=== PATIENT | female | born 1995 | race Caucasian/White ===

== ENCOUNTER 2018-06-15 08:18 | Emergency (ER) | payer MEDICAID ==
[~2018-06-15] VITALS: Ht 165.1 cm; Wt 91.0 kg
--- NOTE | 2018-06-15 09:11 | NUR ---
PT STATES SHE HIT HER HEAD WHILE DRIVING OVER A SPEED BUMP YESTERDAY. DENIES LOC, OR BLOOD THINNERS. NO FOCAL DEFICITS. COMPLAINING OF FATIGUE, DIZZINESS, TINGLING TO ALL EXTREMITIES.
[2018-06-15] MEDS ORDERED: ONDANSETRON ODT 4 MG PO ONE (10:00)
[2018-06-15 10:06] LABS: BASOPHILS # (AUTO) 0.06 x10^3/uL (0-0.1); BASOPHILS % (AUTO) 1 % (0-1); EOSINOPHILS # (AUTO) 0.01 x10^3/uL (0-0.4); EOSINOPHILS % (AUTO) 0 % (1-7); LYMPHOCYTES # (AUTO) 2.21 x10^3/uL (1-3.4); LYMPHOCYTES % (AUTO) 23 % (22-44); MD NO; MEAN CORPUSCULAR HEMOGLOBIN 29.7 pg (27.0-34.8); MEAN CORPUSCULAR HGB CONC 34.1 g/dL (32.4-35.8); MEAN CORPUSCULAR VOLUME 87.1 fL (80-100); MEAN PLATELET VOLUME 9.3 fL (7.4-10.4); MONOCYTES % (AUTO) 4 % (2-9); NEUTROPHILS # (AUTO) 6.85 x10^3/uL (1.8-6.8); NEUTROPHILS % (AUTO) 72 % (42-75); PLATELET COUNT 262 x10^3/uL (130-400); RED BLOOD COUNT 5.42 x10^6/uL (3.82-5.3); RED CELL DISTRIBUTION WIDTH 13.2 % (9.6-15.2)
[2018-06-15] MEDS ORDERED: ONDANSETRON ODT 4 MG ONE (10:14)
[2018-06-15 10:20] LABS: ANION GAP 4 mmol/L (5-15); CALCIUM 9.2 mg/dL (8.5-10.1); CHLORIDE 108 mmol/L (98-107)
[2018-06-15 10:21] LABS: CREATININE 0.87 mg/dL (0.55-1.02)
[2018-06-15 10:37] VITALS: BP 110/53
--- NOTE | 2018-06-15 11:14 | NUR ---
Patient contimnues to complain of dizziness/extremity tingling. No change in unremarkable strtength/sensation exams. Reports nausea medicine helpeful. Taking po fluids/solids
== END 2018-06-15 11:26 | disposition home or self-care (01) ==
LOC: ED 09:01
DX: S06.0X0A Concussion without loss of consciousness, initial encounter (principal); X58.XXXA Exposure to other specified factors, initial encounter; Y93.89 Activity, other specified; Y92.89 Other specified places as the place of occurrence of the external cause; Y99.8 Other external cause status
CPT/HCPCS: 36415; 70450; 80048; 82040; 85025; 99284; Q0162

== ENCOUNTER 2018-07-02 19:48 | Emergency (ER) | payer MEDICAID ==
[~2018-07-02] VITALS: Ht 165.1 cm; Wt 90.4 kg
[2018-07-02 20:05] VITALS: BP 118/85
[2018-07-02] MEDS ORDERED: DEXAMETHASONE 4 MG TABLET ONE (20:35)
[2018-07-02] MEDS ORDERED: DEXAMETHASONE 4 MG TABLET PO ONE (21:00)
== END 2018-07-02 21:30 | disposition home or self-care (01) ==
LOC: ED 20:20
DX: J02.8 Acute pharyngitis due to other specified organisms (principal); B97.89 Other viral agents as the cause of diseases classified elsewhere
CPT/HCPCS: 87081; 87880; 99283

== ENCOUNTER 2018-08-21 19:37 | Emergency (ER) | payer MEDICAID, OTHER ==
[~2018-08-21] VITALS: Ht 165.1 cm; Wt 87.0 kg
[2018-08-21 19:42] VITALS: BP 124/50
[2018-08-21] MEDS ORDERED: IBUPROFEN 200 MG TABLET ONE (20:06)
[2018-08-21] MEDS ORDERED: IBUPROFEN 200 MG TABLET PO ONE (20:30)
--- NOTE | 2018-08-21 20:42 | NUR ---
Patient/Caregiver given discharge instructions and they have confirmed that they understand the instructions. LEIGHTON bandage on left ankle, CMS intact. Patient ambulatory with steady gait with crutches brought from home.
== END 2018-08-21 20:47 | disposition home or self-care (01) ==
LOC: ED 20:22
DX: S96.912A Strain of unspecified muscle and tendon at ankle and foot level, left foot, initial encounter (principal); X58.XXXA Exposure to other specified factors, initial encounter; Y93.89 Activity, other specified; Y92.89 Other specified places as the place of occurrence of the external cause; Y99.8 Other external cause status
CPT/HCPCS: 99283

== ENCOUNTER 2018-08-27 08:56 | Emergency (ER) | payer OTHER, MEDICAID ==
[~2018-08-27] VITALS: Ht 165.1 cm; Wt 87.1 kg
== END 2018-08-27 10:02 | disposition home or self-care (01) ==
LOC: ED 09:56
DX: M77.52 Other enthesopathy of left foot and ankle (principal)
CPT/HCPCS: 99281

== ENCOUNTER 2018-10-08 15:50 | Emergency (ER) | payer OTHER, MEDICAID ==
[~2018-10-08] VITALS: Ht 165.1 cm; Wt 82.3 kg
[2018-10-08 15:52] VITALS: BP 100/63
--- NOTE | 2018-10-08 16:08 | NUR ---
Pt assessed. C/o dysuria for past week, worsening yesteday. Denies fever, denies flank pain. Urine sample sent to lab. Pt denies significant medical hx. NAD at this time. Will cont to monitor, call light within reach
[2018-10-08 16:14] LABS: HCG UR SG 1.026 (1.003-1.030); MICROSCOPIC NOT IND
[2018-10-08 16:17] LABS: CULTURE INDICATED? NO
== END 2018-10-08 16:52 | disposition home or self-care (01) ==
LOC: ED 16:24
DX: R30.0 Dysuria (principal)
CPT/HCPCS: 81003; 81025; 99283

== ENCOUNTER 2019-08-10 22:09 | Emergency (ER) | payer MEDICAID ==
[~2019-08-10] VITALS: Ht 165.1 cm; Wt 79.0 kg
[2019-08-10 22:46] LABS: BASOPHILS # (AUTO) 0.12 x10^3/uL (0-0.1); BASOPHILS % (AUTO) 1 % (0-1); EOSINOPHILS # (AUTO) 0.09 x10^3/uL (0-0.4); EOSINOPHILS % (AUTO) 1 % (1-7); LYMPHOCYTES # (AUTO) 3.58 x10^3/uL (1-3.4); LYMPHOCYTES % (AUTO) 30 % (22-44); MD NO; MEAN CORPUSCULAR HEMOGLOBIN 30.2 pg (27.0-34.8); MEAN CORPUSCULAR HGB CONC 33.7 g/dL (32.4-35.8); MEAN CORPUSCULAR VOLUME 89.6 fL (80-100); MEAN PLATELET VOLUME 9.1 fL (7.4-10.4); MONOCYTES # (AUTO) 0.64 x10^3/uL (0.2-0.8); MONOCYTES % (AUTO) 5 % (2-9); NEUTROPHILS # (AUTO) 7.51 x10^3/uL (1.8-6.8); NEUTROPHILS % (AUTO) 63 % (42-75); PLATELET COUNT 206 x10^3/uL (130-400); RED BLOOD COUNT 4.95 x10^6/uL (3.82-5.3); RED CELL DISTRIBUTION WIDTH 13.7 % (9.6-15.2)
--- NOTE | 2019-08-10 22:47 | NUR ---
PT UP TO BATHROOM FOR URINE SAMPLE COLLECTION. PT C/O INCREASED VAGINAL BLEEDING. PROVIDED WITH DISPOSABLE PANTIES AND LINERS. LABS DRAWN AND SENT. PT TO IMAGING AT THIS TIME.
[2019-08-10 22:56] LABS: ALBUMIN 3.7 g/dL (3.4-5.0); ANION GAP 6 mmol/L (5-15); CALCIUM 9.2 mg/dL (8.5-10.1); CHLORIDE 107 mmol/L (98-107); CREATININE 0.87 mg/dL (0.55-1.02)
[2019-08-10 22:56] LABS: MICROSCOPIC AUTO
[2019-08-10 23:03] LABS: CULTURE INDICATED? NO
[2019-08-10] MEDS ORDERED: ACETAMINOPHEN 500 MG TABLET ONE ×2 (23:38→23:39)
[2019-08-10 23:44] VITALS: BP 116/77
[2019-08-11] MEDS ORDERED: ACETAMINOPHEN 500 MG TABLET PO ONE
== END 2019-08-11 00:38 | disposition home or self-care (01) ==
LOC: ED 23:30
DX: O03.9 Complete or unspecified spontaneous abortion without complication (principal); R10.2 Pelvic and perineal pain
CPT/HCPCS: 36415; 76801; 80048; 81001; 82040; 84702; 85025; 86901; 99284

== ENCOUNTER 2019-08-15 10:57 | Emergency (ER) | payer MEDICAID ==
[~2019-08-15] VITALS: Ht 165.1 cm; Wt 79.9 kg
[2019-08-15 11:00] VITALS: BP 108/61
== END 2019-08-15 11:46 | disposition home or self-care (01) ==
LOC: ED 11:31
DX: O03.9 Complete or unspecified spontaneous abortion without complication (principal)
CPT/HCPCS: 99281

== ENCOUNTER 2019-11-14 15:25 | Emergency (ER) | payer MEDICAID ==
[~2019-11-14] VITALS: Ht 165.1 cm; Wt 83.1 kg
[2019-11-14 15:26] VITALS: BP 109/57
--- NOTE | 2019-11-14 15:58 | NUR ---
FOOD SERVICE ORDER CLERK: PT TO ROOM FROM [facility]. PT AMBULATORY WITH STEADY GAIT. ROMINA
[2019-11-14 16:09] LABS: MICROSCOPIC NOT IND
[2019-11-14 16:48] LABS: HCG UR SG 1.026 (1.003-1.030)
--- NOTE | 2019-11-14 18:07 | NUR ---
TASK RN: DC EDUCATION PROVIDED, PT DEMONSTRATES UNDERSTANDING. PT AMBULATED STEADILY TO DC WITH RN
== END 2019-11-14 18:09 | disposition home or self-care (01) ==
LOC: ED 17:12
DX: R30.0 Dysuria (principal); R10.2 Pelvic and perineal pain
CPT/HCPCS: 81003; 81025; 99283

== ENCOUNTER 2020-02-15 15:22 | Emergency (ER) | payer MEDICAID ==
[~2020-02-15] VITALS: Ht 165.1 cm; Wt 83.1 kg
[2020-02-15 15:31] VITALS: BP 110/57
--- NOTE | 2020-02-15 15:48 | NUR ---
DISCHARGED FROM TRIAGE.
== END 2020-02-15 15:50 | disposition home or self-care (01) ==
LOC: ED 15:44
DX: U07.1 COVID-19 (principal); B34.9 Viral infection, unspecified; R05 Cough; R09.89 Other specified symptoms and signs involving the circulatory and respiratory systems
CPT/HCPCS: 87635; 99283

== ENCOUNTER 2020-09-08 09:02 | Outpatient (CLI) | payer MEDICAID ==
[~2020-09-08] VITALS: Ht 165.1 cm; Wt 102.7 kg
== END 2020-09-08 11:10 | disposition home or self-care (01) ==
LOC: LDOP 09:02
PROVIDERS: ATTEND Student in an Organized Health Care Education/Training Program
DX: O36.8130 Decreased fetal movements, third trimester, not applicable or unspecified (principal); Z3A.39 39 weeks gestation of pregnancy
CPT/HCPCS: 59025; 76815; 76818

== ENCOUNTER 2020-12-20 10:09 | Emergency (ER) | payer MEDICAID ==
[~2020-12-20] VITALS: Ht 165.1 cm; Wt 98.0 kg
[~2020-12-20 10:09] MED LIST: IBUP-1222 PO
[2020-12-20 10:20] VITALS: BP 102/64
--- NOTE | 2020-12-20 10:31 | NUR ---
PATIENT WALKED BACK FROM TRIAGE WITH CHIEF C/O CONGESTION AND RUNNY NOSE SINCE THIS MORNING. PATIENT ALSO REPORTS COUGH AND SOB. NADN, CALL LIGHT WITHIN REACH.
--- NOTE | 2020-12-20 11:13 | NUR ---
COVID SWAB COLLECTED AND WALKED TO LAB.
--- NOTE | 2020-12-20 11:24 | NUR ---
Patient given discharge instructions and they have confirmed that they understand the instructions. Patient ambulatory with steady gait. NAD, all questions answered appropriately, denies additional needs at this time. No personal belongings left in room after discharge.
== END 2020-12-20 11:29 | disposition home or self-care (01) ==
LOC: ED 10:39
DX: B34.9 Viral infection, unspecified (principal); Z20.822 Contact with and (suspected) exposure to COVID-19; R05 Cough; R06.02 Shortness of breath; R50.9 Fever, unspecified
CPT/HCPCS: 99283; U0003; U0005